=== PATIENT | male | born 1960 | race Caucasian/White ===

== ENCOUNTER 2016-05-25 09:03 | Outpatient (CLI) | payer OTHER ==
[2016-05-25 09:41] LABS: Cardiac Risk 7.6 (Less than 4.5); Cholesterol 243 mg/dL (< 200 Desired); HDL Cholesterol 32 mg/dL (>60 Neg Risk)
[2016-05-25 10:22] LABS: Triglycerides 1016 mg/dL (Less than 150)
== END 2016-05-25 09:04 | disposition home or self-care (01) ==
LOC: MADLABBHPM 09:03
PROVIDERS: ATTEND Family Medicine
DX: E78.2 Mixed hyperlipidemia (principal)
CPT/HCPCS: 36415; 80061

== ENCOUNTER 2016-05-26 10:46 | Outpatient (CLI) | payer OTHER ==
[2016-05-26 13:03] LABS: ALT (SGPT) 42 U/L (0-55); AST (SGOT) 28 U/L (5-34); Albumin 4.3 g/dL (3.5-5.0); Alkaline Phosphatase 93 U/L (40-150); Anion Gap 17 mmol/L (10-20); BUN (Urea Nitrogen) 20 mg/dL (8.4-25.7); Bilirubin, Total 0.3 mg/dL (0.2-1.2); Calc. Creatinine Clearance 0 mL/min (70-130); Carbon Dioxide 24 mmol/L (22-29); Chloride 100 mmol/L (98-107); Estimated GFR-MDRD 89; Globulin 2.7 g/dL (2.4-3.5); Glucose 178 mg/dL (70-105); Potassium 4.2 mmol/L (3.5-5.1); Sodium 137 mmol/L (136-145)
[2016-05-26 13:14] LABS: Hemoglobin A1c 7.9 % (4.0-6.0)
[2016-05-26 18:08] LABS: Microalbumin Urine Less than 1.0 mg/dL (0.5-50.0); Microalbumin/Creat Ratio 15.9 mg/g (Less than 30)
== END 2016-05-26 10:47 | disposition home or self-care (01) ==
LOC: MADLABBHPM 10:46
PROVIDERS: ATTEND Family Medicine
DX: E78.2 Mixed hyperlipidemia (principal); E11.9 Type 2 diabetes mellitus without complications
CPT/HCPCS: 36415; 80053; 82043; 82570; 83036; 84443

== ENCOUNTER 2016-08-23 08:46 | Outpatient (CLI) | payer OTHER ==
[2016-08-23 09:21] LABS: Hemoglobin A1c 7.4 % (4.0-6.0)
[2016-08-23 09:48] LABS: ALT (SGPT) 45 U/L (0-55); AST (SGOT) 29 U/L (5-34); Albumin 4.2 g/dL (3.5-5.0); Alkaline Phosphatase 73 U/L (40-150); Anion Gap 16 mmol/L (10-20); BUN (Urea Nitrogen) 22 mg/dL (8.4-25.7); Bilirubin, Total 0.4 mg/dL (0.2-1.2); Calc. Creatinine Clearance 0 mL/min (70-130); Calcium 9.4 mg/dL (7.8-10.44); Carbon Dioxide 24 mmol/L (22-29); Chloride 100 mmol/L (98-107); Cholesterol 197 mg/dL (< 200 Desired); Estimated GFR-MDRD 84; Globulin 2.5 g/dL (2.4-3.5); Glucose 177 mg/dL (70-105); HDL Cholesterol 33 mg/dL (>60 Neg Risk); LDL Cholesterol, Calculated 108 mg/dL; Potassium 4.2 mmol/L (3.5-5.1); Protein, Total 6.7 g/dL (6.0-8.3); Sodium 136 mmol/L (136-145); Triglycerides 279 mg/dL (Less than 150)
[2016-08-23 18:47] LABS: Creatinine, Urine 151.58 mg/dL (63-166); Microalbumin Urine 1.1 mg/dL (0.5-50.0); Microalbumin/Creat Ratio 7.3 mg/g (Less than 30)
== END 2016-08-23 08:47 | disposition home or self-care (01) ==
LOC: MADLABBHPM 08:46
PROVIDERS: ATTEND Family Medicine
DX: E78.2 Mixed hyperlipidemia (principal); E11.9 Type 2 diabetes mellitus without complications
CPT/HCPCS: 36415; 80053; 80061; 82043; 83036; 84443

== ENCOUNTER 2016-10-16 08:37 | Emergency (ER) | payer OTHER ==
[2016-10-16] MEDS ORDERED: Triple Antibiotic Oint 1 GM Packet ONE (09:36)
--- NOTE | 2016-10-16 10:57 | RAD ---
RADIOGRAPH LEFT FIRST DIGIT 3 VIEWS: Date: 10/16/16 HISTORY: 55-year-old male with volar laceration. FINDINGS: Dressing overlies the volar soft tissues adjacent to the distal half of the first distal phalanx. On the AP and oblique views, a punctate, less than 1 mm calcific density overlies the soft tissues on the volar and ulnar sides of the distal phalanx. It is uncertain whether this is on the dressing its elf or represents a tiny foreign body. No other potential radiopaque foreign body is visualized. No fracture or dislocation. No destructive osseous lesion. IMPRESSION: 1. Less than 1 mm tiny punctate calcific density overlies the soft tissues of the distal thumb. It is uncertain whether this is on the dressing itself or represents a tiny foreign body. 2. Otherwise negative. POS: [facility]
[2016-10-16] MEDS ORDERED: Lidocaine 1% 20 ML MDV ONE (12:21)
[2016-10-16] MEDS ORDERED: Sodium Chloride Irrig Solution 250 ML BOT ONE (12:21)
== END 2016-10-16 09:50 | disposition home or self-care (01) ==
LOC: MADERS 08:37
DX: S61.012A Laceration without foreign body of left thumb without damage to nail, initial encounter (principal); E11.9 Type 2 diabetes mellitus without complications; K21.9 Gastro-esophageal reflux disease without esophagitis; E78.5 Hyperlipidemia, unspecified; I10 Essential (primary) hypertension; Z79.82 Long term (current) use of aspirin; Z79.84 Long term (current) use of oral hypoglycemic drugs; Z79.899 Other long term (current) drug therapy; W29.8XXA Contact with other powered hand tools and household machinery, initial encounter; Y92.009 Unspecified place in unspecified non-institutional (private) residence as the place of occurrence of the external cause
CPT/HCPCS: 12001; 36416; J2001

== ENCOUNTER 2016-11-22 11:17 | Outpatient (CLI) | payer OTHER ==
[2016-11-22 12:07] LABS: ALT (SGPT) 46 U/L (8-55); AST (SGOT) 30 U/L (5-34); Alkaline Phosphatase 94 U/L (40-150); Anion Gap 14 mmol/L (10-20); BUN (Urea Nitrogen) 20 mg/dL (8.4-25.7); Bilirubin, Total 0.3 mg/dL (0.2-1.2); Calc. Creatinine Clearance 0 mL/min (70-130); Calcium 10.1 mg/dL (7.8-10.44); Carbon Dioxide 24 mmol/L (22-29); Cardiac Risk 7.2 (Less than 4.5); Chloride 104 mmol/L (98-107); Cholesterol 215 mg/dl (< 200 Desired); Estimated GFR-MDRD 84; Globulin 3.4 g/dL (2.4-3.5); Glucose 199 mg/dL (70-105); HDL Cholesterol 30 mg/dL (>60 Neg Risk); Potassium 4.3 mmol/L (3.5-5.1); Protein, Total 7.4 g/dL (6.0-8.3); Sodium 138 mmol/L (136-145); Triglycerides 600 mg/dL (Less than 150)
[2016-11-22 12:23] LABS: Free T4 (Free Thyroxine) 0.97 ng/dL (0.70-1.48); Thyroid Stimulating Hormone 1.1037 uIU/mL (0.35-4.94)
[2016-11-22 12:25] LABS: Hemoglobin A1c 8.1 % (4.0-6.0)
[2016-11-22 17:04] LABS: Creatinine, Urine 98.96 mg/dL (63-166); Microalbumin Urine 1.3 mg/dL (0.5-50.0); Microalbumin/Creat Ratio 13.1 mg/g (Less than 30)
== END 2016-11-22 11:18 | disposition home or self-care (01) ==
LOC: MADLABBHPM 11:17
PROVIDERS: ATTEND Family Medicine
DX: E11.9 Type 2 diabetes mellitus without complications (principal); I10 Essential (primary) hypertension
CPT/HCPCS: 36415; 80053; 80061; 82043; 83036; 84439; 84443

== ENCOUNTER 2017-04-09 10:18 | Emergency (ER) | payer OTHER ==
[2017-04-09] MEDS ORDERED: HYDROcodone/Acetaminophen 10/325 mg Tablet ONE (11:25)
[2017-04-09] MEDS ORDERED: Ibuprofen 800 MG TAB ONE (11:26)
[2017-04-09] MEDS ORDERED: Cyclobenzaprine 10 MG TAB ONE (11:26)
[2017-04-09] MEDS ORDERED: Dexamethasone 4 MG TAB ONE (11:39)
--- NOTE | 2017-04-09 13:06 | RAD ---
3 VIEWS RIGHT SHOULDER: Date: 04/09/17 COMPARISON: 06/17/14. HISTORY: Pain. FINDINGS: Glenohumeral joint space is preserved. No fracture or dislocation. Visualized right ribs are unremark able. Stable subacromial spurring. IMPRESSION: Stable subacromial spurring. Correlate for rotator cuff tendinopathy. POS: [facility]
== END 2017-04-09 11:55 | disposition home or self-care (01) ==
LOC: MADERS 10:18
DX: M25.511 Pain in right shoulder (principal); E11.9 Type 2 diabetes mellitus without complications; K21.9 Gastro-esophageal reflux disease without esophagitis; E78.5 Hyperlipidemia, unspecified; I10 Essential (primary) hypertension; Z79.82 Long term (current) use of aspirin; Z79.84 Long term (current) use of oral hypoglycemic drugs; Z79.899 Other long term (current) drug therapy
CPT/HCPCS: J8540

== ENCOUNTER 2017-11-09 14:51 | Outpatient (CLI) | payer OTHER ==
--- NOTE | 2017-11-09 15:54 | RAD ---
CHEST PA AND LATERAL: HISTORY: A 56-year-old male with a history of shortness of breath. COMPARISON: 06/17/14. FINDINGS: Heart size is within normal limits. The lungs are clear. IMPRESSION: No active intrathoracic disease. No evidence of edema, pneumonia, or other acute process. POS: [facility]
== END 2017-11-09 14:52 | disposition home or self-care (01) ==
LOC: MADRAD 14:51
PROVIDERS: ATTEND Family Medicine
DX: R06.02 Shortness of breath (principal); R00.0 Tachycardia, unspecified
CPT/HCPCS: 71046

== ENCOUNTER 2019-12-23 13:10 | Emergency (ER) | payer OTHER ==
[~2019-12-23 13:10] MED LIST: Lactated Ringer's 1,000 ML BAG ONE; Sodium Chloride 0.9% 1,000 ML BAG ONE
--- NOTE | 2019-12-23 13:35 | RAD ---
XR Chest 1 View Portable HISTORY: Chest pain COMPARISON: None FINDINGS: The heart size is normal. The lungs are well expanded without focal areas of consolidation, pneumothorax or pleural effusions. IMPRESSION: No radiographic evidence of acute cardiopulmonary process.
[2019-12-23 13:38] LABS: INR-International Normal Ratio 0.9; Prothrombin Time 12.4 sec (12.0-14.7)
[2019-12-23 13:44] LABS: #Basophils 0.1 thou/uL (0.0-0.2); #Eosinphils 0.1 thou/uL (0.0-0.7); #Lymphocytes 3.2 thou/uL (1.20-3.40); #Neutrophils 8.8 thou/uL (1.40-6.50); %Basophils 0.9 % (0.0-1.0); %Eosinophils 0.5 % (0.0-10.0); %Lymphocytes 24.5 % (21.0-51.0); %Monocytes 7.8 % (0.0-10.0); %Neutrophils 66.3 % (42.0-75.0); Hemoglobin 15.8 g/dL (14.0-18.0); Mean Corpuscular HGB CONC 32.1 g/dL (32.0-36.0); Mean Corpuscular Volume 90.4 fL (78.0-98.0); Mean Platelet Volume 7.6 fL (7.4-10.4); Platelet Count 442 thou/uL (130-400); RBC Distribution Width 11.5 % (11.5-14.5); Red Blood Cell (RBC) Count 5.45 mill/uL (4.70-6.10); White Blood Cell (WBC) Count 13.2 thou/uL (4.8-10.8)
[2019-12-23 13:58] LABS: ALT (SGPT) 51 U/L (8-55); AST (SGOT) 32 U/L (5-34); Alkaline Phosphatase 44 U/L (40-110); Anion Gap 23 mmol/L (10-20); BUN (Urea Nitrogen) 50 mg/dL (8.4-25.7); Bilirubin, Total 0.6 mg/dL (0.2-1.2); Calc. Creatinine Clearance 0 mL/min (70-130); Calcium 10.5 mg/dL (7.8-10.44); Carbon Dioxide 18 mmol/L (22-29); Chloride 100 mmol/L (98-107); Estimated GFR-MDRD 23; Globulin 3.3 g/dL (2.4-3.5); Glucose 169 mg/dL (70-105); Potassium 4.3 mmol/L (3.5-5.1); Protein, Total 8.3 g/dL (6.0-8.3); Sodium 137 mmol/L (136-145)
== END 2019-12-23 14:02 | disposition short-term general hospital (02) ==
LOC: MADERS 13:10
DX: R07.9 Chest pain, unspecified (principal); I95.9 Hypotension, unspecified; E11.9 Type 2 diabetes mellitus without complications; K21.9 Gastro-esophageal reflux disease without esophagitis; E78.5 Hyperlipidemia, unspecified; E78.00 Pure hypercholesterolemia, unspecified; Z79.82 Long term (current) use of aspirin; Z79.84 Long term (current) use of oral hypoglycemic drugs; Z79.899 Other long term (current) drug therapy
CPT/HCPCS: 71045; 80053; 83880; 84484; 85025; 85610; 93005; J7050; J7120

== ENCOUNTER 2020-07-15 12:43 | Outpatient (CLI) | payer OTHER ==
[2020-07-15 13:02] LABS: Potassium 4.4 mmol/L (3.5-5.1)
== END 2020-07-15 12:44 | disposition home or self-care (01) ==
LOC: MADLAB 12:43
PROVIDERS: ATTEND Family Medicine
DX: E87.5 Hyperkalemia (principal)
CPT/HCPCS: 36415; 84132

== ENCOUNTER 2020-11-17 12:48 | Outpatient (CLI) | payer OTHER ==
[2020-11-17 13:42] LABS: ALT (SGPT) 26 U/L (8-55); AST (SGOT) 16 U/L (5-34); Albumin 3.9 g/dL (3.5-5.0); Alkaline Phosphatase 107 U/L (40-110); Anion Gap 15 mmol/L (10-20); BUN (Urea Nitrogen) 23 mg/dL (8.4-25.7); Bilirubin, Total 0.2 mg/dL (0.2-1.2); Calc. Creatinine Clearance 0 mL/min (70-130); Carbon Dioxide 25 mmol/L (22-29); Chloride 103 mmol/L (98-107); Globulin 2.9 g/dL (2.4-3.5); Glucose 319 mg/dL (70-105); Potassium 4.4 mmol/L (3.5-5.1); Protein, Total 6.8 g/dL (6.0-8.3); Sodium 139 mmol/L (136-145)
[2020-11-17 21:24] LABS: Hemoglobin A1c 8.1 % (4.0-6.0)
== END 2020-11-17 12:49 | disposition home or self-care (01) ==
LOC: MADLAB 12:48
PROVIDERS: ATTEND Family Medicine
DX: E11.9 Type 2 diabetes mellitus without complications (principal)
CPT/HCPCS: 36415; 80053; 83036

== ENCOUNTER 2022-01-25 10:07 | Emergency (ER) | payer BC ==
[~2022-01-25 10:07] MED LIST changes: +Iopamidol 370 76% 125 ML VIAL FS ONE; -Lactated Ringer's 1,000 ML BAG ONE; -Sodium Chloride 0.9% 1,000 ML BAG ONE; +Sodium Chloride 0.9% 100 ML BAG ONE
[2022-01-25 10:33] LABS: #Basophils 0.1 thou/uL (0.0-0.2); #Eosinphils 0.2 thou/uL (0.0-0.7); #Lymphocytes 1.5 thou/uL (1.20-3.40); #Monocytes 0.6 thou/uL (0.11-0.59); #Neutrophils 4.2 thou/uL (1.40-6.50); %Basophils 1.3 % (0.0-1.0); %Eosinophils 3.7 % (0.0-10.0); %Lymphocytes 22.4 % (21.0-51.0); %Monocytes 8.4 % (0.0-10.0); %Neutrophils 64.2 % (42.0-75.0); Hemoglobin 14.3 g/dL (14.0-18.0); Mean Corpuscular HGB CONC 32.8 g/dL (32.0-36.0); Mean Corpuscular Hemoglobin 29.5 pg (27.0-31.0); Mean Corpuscular Volume 90.1 fL (78.0-98.0); Mean Platelet Volume 9.5 fL (7.4-10.4); Platelet Count 256 thou/uL (130-400); RBC Distribution Width 11.5 % (11.5-14.5); Red Blood Cell (RBC) Count 4.84 mill/uL (4.70-6.10); White Blood Cell (WBC) Count 6.5 thou/uL (4.8-10.8)
[2022-01-25 10:47] LABS: ALT (SGPT) 29 U/L (8-55); AST (SGOT) 20 U/L (5-34); Albumin 3.9 g/dL (3.5-5.0); Alkaline Phosphatase 188 U/L (40-110); Anion Gap 14 mmol/L (10-20); BUN (Urea Nitrogen) 13 mg/dL (8.4-25.7); Bilirubin, Total 0.2 mg/dL (0.2-1.2); Calc. Creatinine Clearance 0 mL/min (70-130); Calcium 9.3 mg/dL (7.8-10.44); Carbon Dioxide 28 mmol/L (22-29); Chloride 98 mmol/L (98-107); Estimated GFR 103; Globulin 3.1 g/dL (2.4-3.5); Glucose 312 mg/dL (70-105); Potassium 4.2 mmol/L (3.5-5.1); Sodium 136 mmol/L (136-145)
[2022-01-25 10:57] LABS: Bilirubin Negative (Negative); Blood, Urine Negative (Negative); Clarity Clear (Clear); Glucose, Urine (Dipstick) 500 mg/dL (Negative); Ketone, Urine Negative (Negative); Leukocyte Negative (Negative); Nitrite Negative (Negative); Protein, Urine (Dipstick) 100 mg/dL (Neg-Trace); Specific Gravity, Urine 1.015 (1.005-1.030); Urobilinogen 0.2 mg/dL (Less than 2); pH, Urine 6.5 (5.0-9.0)
[2022-01-25 10:59] LABS: Bacteria/HPF None Seen HPF (None Seen); RBC/HPF None Seen HPF (0-3); Squamous Epithelial 0-3 HPF (0-3); WBC/HPF None Seen HPF (0-3)
[2022-01-25] MEDS ORDERED: Aspirin Chewable 81 MG TAB ONE (12:52)
== END 2022-01-25 14:16 | disposition short-term general hospital (02) ==
LOC: MADERS 10:07
DX: R42 Dizziness and giddiness (principal); M54.6 Pain in thoracic spine; I10 Essential (primary) hypertension; E11.9 Type 2 diabetes mellitus without complications; E78.00 Pure hypercholesterolemia, unspecified; K21.9 Gastro-esophageal reflux disease without esophagitis; Z79.899 Other long term (current) drug therapy; Z79.84 Long term (current) use of oral hypoglycemic drugs
CPT/HCPCS: 36415; 36416; 70450; 71045; 71275; 74174; 80053; 81003; 81015; 83880; 84484; 85025; 93005; 94760; Q9967

== ENCOUNTER 2022-04-07 11:09 | Outpatient (CLI) | payer BC | END 2022-04-07 11:10 | disposition home or self-care (01) | LOC: MADRAD 11:09 | PROVIDERS: ATTEND Family Medicine | DX: M25.531 Pain in right wrist (principal); S60.551A Superficial foreign body of right hand, initial encounter ==

== ENCOUNTER 2023-04-24 10:15 | Emergency (ER) | payer BC ==
[2023-04-24] MEDS ORDERED: Meclizine HCl 25 MG TAB ONE (10:58)
[2023-04-24] MEDS ORDERED: Sodium Chloride 0.9% 1,000 ML ONE (10:58)
[2023-04-24 11:03] LABS: #Basophils 0.1 thou/uL (0.0-0.2); #Eosinphils 0.2 thou/uL (0.0-0.7); #Lymphocytes 1.3 thou/uL (1.20-3.40); #Monocytes 0.5 thou/uL (0.11-0.59); #Neutrophils 4.4 thou/uL (1.40-6.50); %Basophils 1.4 % (0.0-1.0); %Eosinophils 3.3 % (0.0-10.0); %Monocytes 7.7 % (0.0-10.0); %Neutrophils 67.6 % (42.0-75.0); Hematocrit 51.8 % (42.0-52.0); Hemoglobin 16.2 g/dL (14.0-18.0); Mean Corpuscular HGB CONC 31.3 g/dL (32.0-36.0); Mean Corpuscular Hemoglobin 29.3 pg (27.0-31.0); Mean Corpuscular Volume 93.9 fl (78.0-98.0); Platelet Count 239 10x3/uL (130-400); RBC Distribution Width 12.5 % (11.5-14.5); Red Blood Cell (RBC) Count 5.52 mill/uL (4.70-6.10); White Blood Cell (WBC) Count 6.5 10x3/uL (4.8-10.8)
[2023-04-24 11:15] LABS: Anion Gap 16 mmol/L (10-20); BUN (Urea Nitrogen) 18 mg/dL (8.4-25.7); Calc. Creatinine Clearance 0 mL/min (70-130); Calcium 9.3 mg/dL (7.8-10.44); Carbon Dioxide 25 mmol/L (23-31); Chloride 101 mmol/L (98-107); Estimated GFR 98; Potassium 4.4 mmol/L (3.5-5.1); Sodium 138 mmol/L (136-145)
[2023-04-24 11:19] LABS: Troponin I Less than 0.010 ng/mL (< 0.028)
[2023-04-24 11:29] LABS: Glucose 434 mg/dL (80-115)
== END 2023-04-24 12:45 | disposition home or self-care (01) ==
LOC: MADERS 10:15
DX: R42 Dizziness and giddiness (principal); E11.9 Type 2 diabetes mellitus without complications; I10 Essential (primary) hypertension; E78.00 Pure hypercholesterolemia, unspecified; Z79.82 Long term (current) use of aspirin; Z79.4 Long term (current) use of insulin; Z79.84 Long term (current) use of oral hypoglycemic drugs; Z79.899 Other long term (current) drug therapy
CPT/HCPCS: 36416; 70450; 71045; 80048; 84484; 85025; 93005; 96360; J7050

== ENCOUNTER 2023-10-04 13:35 | Emergency (ER) | payer BC ==
[2023-10-04] MEDS ORDERED: traMADol HCl 50 MG TAB ONE (14:06)
[2023-10-04 14:12] LABS: Bilirubin Negative (Negative); Blood, Urine Negative (Negative); Glucose, Urine (Dipstick) >=1000 mg/dL (Negative); Ketone, Urine Negative (Negative); Leukocyte Negative (Negative); Nitrite Negative (Negative); Protein, Urine (Dipstick) Negative (Neg-Trace); Specific Gravity, Urine 1.015 (1.005-1.030); Urobilinogen 0.2 mg/dL (Less than 2); pH, Urine 5.5 (5.0-9.0)
[2023-10-04 14:13] LABS: #Basophils 0.1 thou/uL (0.0-0.2); #Eosinphils 0.2 thou/uL (0.0-0.7); #Lymphocytes 2.2 thou/uL (1.20-3.40); #Monocytes 0.9 thou/uL (0.11-0.59); #Neutrophils 8.5 thou/uL (1.40-6.50); %Basophils 0.9 % (0.0-1.0); %Eosinophils 1.7 % (0.0-10.0); %Lymphocytes 18.6 % (21.0-51.0); %Monocytes 7.8 % (0.0-10.0); Hematocrit 49.6 % (42.0-52.0); Hemoglobin 15.3 g/dL (14.0-18.0); Mean Corpuscular HGB CONC 30.8 g/dL (32.0-36.0); Mean Corpuscular Hemoglobin 28.4 pg (27.0-31.0); Mean Corpuscular Volume 92.1 fl (78.0-98.0); Mean Platelet Volume 7.1 fL (7.4-10.4); Platelet Count 294 10x3/uL (130-400); Red Blood Cell (RBC) Count 5.38 mill/uL (4.70-6.10)
[2023-10-04 14:23] LABS: Bacteria/HPF 2+ HPF (None Seen); CAUTI Indications for Culture Dysuria,urgency,freq; Clarity Hazy (Clear); RBC/HPF 0-3 HPF (0-3); Squamous Epithelial 0-3 HPF (0-3)
[2023-10-04 14:25] LABS: Urine Culture Reflex No No
[2023-10-04 14:25] LABS: Anion Gap 15 mmol/L (10-20); BUN (Urea Nitrogen) 42 mg/dL (8.4-25.7); Calc. Creatinine Clearance 0 mL/min (70-130); Calcium 9.2 mg/dL (7.8-10.44); Carbon Dioxide 23 mmol/L (23-31); Chloride 100 mmol/L (98-107); Estimated GFR 76; Glucose 204 mg/dL (80-115); Potassium 4.6 mmol/L (3.5-5.1); Sodium 133 mmol/L (136-145)
== END 2023-10-04 14:38 | disposition short-term general hospital (02) ==
LOC: MADERS 13:35
DX: S80.12XA Contusion of left lower leg, initial encounter (principal); N50.89 Other specified disorders of the male genital organs; E11.9 Type 2 diabetes mellitus without complications; K21.9 Gastro-esophageal reflux disease without esophagitis; E78.00 Pure hypercholesterolemia, unspecified; I10 Essential (primary) hypertension; X58.XXXA Exposure to other specified factors, initial encounter; Z79.4 Long term (current) use of insulin; Z79.82 Long term (current) use of aspirin; Z79.899 Other long term (current) drug therapy
CPT/HCPCS: 36415; 80048; 81001; 85025; 99284

== ENCOUNTER 2024-02-02 14:30 | Outpatient (CLI) | payer BC | END 2024-02-02 14:31 | disposition home or self-care (01) | LOC: MADRAD 14:30 | PROVIDERS: ATTEND Nurse Practitioner Family | DX: R07.1 Chest pain on breathing (principal) | CPT/HCPCS: 71046 ==

== ENCOUNTER 2024-12-02 14:44 | Emergency (ER) | payer BC ==
[~2024-12-02 14:44] MED LIST changes: +Iopamidol 370 76% 100 ML VIAL ONE; -Iopamidol 370 76% 125 ML VIAL FS ONE; -Sodium Chloride 0.9% 100 ML BAG ONE
[2024-12-02 15:22] LABS: Glucose, Urine (Dipstick) >=1000 mg/dL (Negative); Leukocyte Negative (Negative); Protein, Urine (Dipstick) Trace mg/dL (Neg-Trace); Specific Gravity, Urine 1.015 (1.005-1.030)
[2024-12-02 15:25] LABS: INR-International Normal Ratio 1.0; Prothrombin Time 12.7 sec (12.0-14.7)
[2024-12-02 15:26] LABS: PTT 30.0 sec (22.9-36.1)
[2024-12-02 15:27] LABS: #Basophils 0.1 thou/uL (0.0-0.2); #Eosinophils 0.3 thou/uL (0.0-0.7); #Lymphocytes 1.7 thou/uL (1.20-3.40); #Monocytes 0.6 thou/uL (0.11-0.59); #Neutrophils 7.9 thou/uL (1.40-6.50); %Basophils 1.2 % (0.0-1.0); %Eosinophils 2.6 % (0.0-10.0); %Lymphocytes 15.9 % (21.0-51.0); %Monocytes 6.0 % (0.0-10.0); %Neutrophils 74.3 % (42.0-75.0); Anisocytosis SLIGHT = 6-15 cells (100X) (0-5/hpf); Hematocrit 40.6 % (42.0-52.0); Hemoglobin 12.7 g/dL (14.0-18.0); MDiff Complete? YES; Mean Corpuscular Hemoglobin 30.5 pg (27.0-31.0); Mean Corpuscular Volume 97.3 fl (78.0-98.0); Platelet Adequacy Comment Appears Adequate; Platelet Count 358 10x3/uL (130-400); Red Blood Cell (RBC) Count 4.17 mill/uL (4.70-6.10); White Blood Cell (WBC) Count 10.6 10x3/uL (4.8-10.8)
[2024-12-02 15:29] LABS: Bacteria/HPF Rare-Few HPF (None Seen); CAUTI Indications for Culture Acute Hematuria; RBC/HPF 0-3 HPF (0-3); WBC/HPF 0-3 HPF (0-3)
[2024-12-02 15:30] LABS: ALT (SGPT) 344 U/L (Less than 45); AST (SGOT) 304 U/L (11-34); Albumin 3.1 g/dL (3.1-4.5); Alkaline Phosphatase 1371 U/L (40-110); Anion Gap 13 mmol/L (10-20); BUN (Urea Nitrogen) 26 mg/dL (8.4-25.7); Bilirubin, Total 10.5 mg/dL (0.3-1.2); Calc. Creatinine Clearance 0 mL/min (70-130); Calcium 9.4 mg/dL (7.8-10.44); Carbon Dioxide 22 mmol/L (23-31); Chloride 104 mmol/L (98-107); Globulin 3.9 g/dL (2.4-3.5); Glucose 208 mg/dL (80-115); Lipase 275 U/L (8-78); Magnesium 1.6 mg/dL (1.6-2.6); Potassium 3.8 mmol/L (3.5-5.1); Sodium 135 mmol/L (136-145)
[2024-12-02 15:30] LABS: Urine Culture Reflex No No
== END 2024-12-02 23:05 | disposition short-term general hospital (02) ==
LOC: MADERS 14:44
DX: R17 Unspecified jaundice (principal); K86.9 Disease of pancreas, unspecified; K85.90 Acute pancreatitis without necrosis or infection, unspecified; E11.9 Type 2 diabetes mellitus without complications; I10 Essential (primary) hypertension
CPT/HCPCS: 74177; 80053; 81001; 83690; 83735; 85025; 85610; 85730; Q9967